=== PATIENT | female | born 1955 | race African-American/Black ===

== ENCOUNTER → 2016-09-20 | Outpatient (CLI) | payer MEDICARE ==
--- NOTE | 2016-09-20 17:59 | WOMENS IMAGING REPORT ---
EXAM DESCRIPTION: 3D SCREENING MAMMO BILAT COMPLETED DATE/TIME: 09/20/2016 2:34 pm REASON FOR STUDY: ROUTINE BILATERAL SCREENING;Z12.31 Z12.31 ENCNTR SCREEN MAMMOGRAM FOR MALIGNANT N EOPLASM OF TRISHA COMPARISON: 06/26/2014 TECHNIQUE: Standard craniocaudal and mediolateral oblique views of each breast recorded using digita l acquisition and breast tomosynthesis. LIMITATIONS: None. FINDINGS: Findings present which are benign by mammographic criteria. No suspicious masses, calcifi cations or architectural distortion. Pertinent benign findings: Stable intramammary lymph nodes, stable benign calcification left retroare olar region medially Read with the assistance of CAD. .[facility] - R2 Cenova Version 1.3 .[facility] - R2 Cenova Version 1.3 .[facility] - R2 Cenova Version 2.4 .[facility] [place] R2 Cenova Version 2.4 .[facility] - R2 Strategic Planning Director Version 9.2 Benign mammographic findings may include one or more of the following: Smooth masses, popcorn/rim/co arse calcifications, asymmetries, post-procedure changes, and lesions with long-standing stability. IMPRESSION: BENIGN MAMMOGRAPHIC FINDINGS. BIRADS 2 BREAST DENSITY: b. There are scattered areas of fibroglandular density. BIRAD: 2 BENIGN FINDING(S) RECOMMENDATION: RECOMMENDATION: ROUTINE SCREENING COMMENT: The patient has been notified of the results by letter per SA requirements. Additional no tification policies are in place for contacting patient with suspicious or incomplete findings. Quality ID #225: The [employer] recommends an annual screening mammogram for women aged 40 years or over. This facility utilizes a reminder system to ensure that all patients receive reminder letters, and/or direct phone calls for appointments. This includes reminders for routine scr eening mammograms, diagnostic mammograms, or other Breast Imaging Interventions when appropriate. Th is patient will be placed in the appropriate reminder system. The [employer] (ACR) has developed recommendations for screening MRI of the breast s in certain patient populations, to be used in conjunction with mammography. Breast MRI surveillanc e may be appropriate for women with more than 20% lifetime risk of developing breast cancer as deter mined by genetic testing, significant family history of the disease, or history of mantle radiation f or Hodgkins Disease. ACR Practice Guidelines 2008. DBT Technology DBT is a type of tomographic mammography. With conventional mammography, overlapping breast tissue ma y make lesions difficult to detect, even with good compression. DBT uses an x-ray tube that rotates a round the breast, taking images at different angles. These images are then combined to create thin sl ices of the breast that the radiologist can view as a 3D reconstruction. The [employer] unit can perform full-field digital mammograms (2D imaging); or DBT (3D imaging); or both, in a combination mode that quickly performs both the mammogram and the tomosynthesis scan while the breast is still compressed. PQRS 6045F: Fluoroscopic imaging is not utilized for breast tomosynthesis. TECHNICAL DOCUMENTATION: FINDING NUMBER: (1) ASSESSMENT: (1) JOB ID: [id number] [employer] All Rights Reserved
== END ==
LOC: WI 15:14
PROVIDERS: ATTEND Internal Medicine Geriatric Medicine
DX: Z12.31 Encounter for screening mammogram for malignant neoplasm of breast (principal)
CPT/HCPCS: 77063; G0202; 77067

== ENCOUNTER → 2017-12-24 | Outpatient (CLI) | payer MEDICAID, MEDICARE ==
--- NOTE | 2017-12-26 17:48 | WOMENS IMAGING REPORT ---
EXAM DESCRIPTION: 3D SCREENING MAMMO BILAT COMPLETED DATE/TIME: 12/24/2017 11:38 am REASON FOR STUDY: SCREENING MAMMO Z12.31 ENCNTR SCREEN MAMMOGRAM FOR MALIGNANT NEOPLASM OF TRISHA COMPARISON: 2014, 2016 TECHNIQUE: Standard craniocaudal and mediolateral oblique views of each breast recorded using digita l acquisition and breast tomosynthesis. LIMITATIONS: None. FINDINGS: No masses, calcifications or architectural distortion. No areas of suspicion. Read with the assistance of CAD. .[facility] - R2 Cenova Version 1.3 .[facility] Imaging - R2 Cenova Version 1.3 .[facility] - R2 Cenova Version 2.4 .[facility] [place] - R2 Cenova Version 2.4 .[facility] - R2 [employer] Version 9.2 IMPRESSION: NORMAL MAMMOGRAM. BIRADS 1. BREAST DENSITY: b. There are scattered areas of fibroglandular density. BIRAD: 1 NEGATIVE RECOMMENDATION: ROUTINE SCREENING COMMENT: The patient has been notified of the results by letter per SA requirements. Additional no tification policies are in place for contacting patient with suspicious or incomplete findings. Quality ID #225: The [employer] recommends an annual screening mammogram for women aged 40 years or over. This facility utilizes a reminder system to ensure that all patients receive reminder letters, and/or direct phone calls for appointments. This includes reminders for routine scr eening mammograms, diagnostic mammograms, or other Breast Imaging Interventions when appropriate. Th is patient will be placed in the appropriate reminder system. The [employer] (ACR) has developed recommendations for screening MRI of the breast s in certain patient populations, to be used in conjunction with mammography. Breast MRI surveillanc e may be appropriate for women with more than 20% lifetime risk of developing breast cancer as deter mined by genetic testing, significant family history of the disease, or history of mantle radiation f or Hodgkins Disease. ACR Practice Guidelines 2008. DBT Technology DBT is a type of tomographic mammography. With conventional mammography, overlapping breast tissue ma y make lesions difficult to detect, even with good compression. DBT uses an x-ray tube that rotates a round the breast, taking images at different angles. These images are then combined to create thin sl ices of the breast that the radiologist can view as a 3D reconstruction. The [employer] unit can perform full-field digital mammograms (2D imaging); or DBT (3D imaging); or both, in a combination mode that quickly performs both the mammogram and the tomosynthesis scan while the breast is still compressed. PQRS 6045F: Fluoroscopic imaging is not utilized for breast tomosynthesis. TECHNICAL DOCUMENTATION: FINDING NUMBER: (1) ASSESSMENT: (1) JOB ID: [id number] [employer]- All Rights Reserved Reading location - IP/workstation name: [facility]
== END ==
LOC: WI 11:13
PROVIDERS: ATTEND Internal Medicine Geriatric Medicine
DX: Z12.31 Encounter for screening mammogram for malignant neoplasm of breast (principal)
CPT/HCPCS: 77063; 77067

== ENCOUNTER 2018-03-07 22:23 | Emergency (ER) | payer MEDICARE, MEDICAID ==
[2018-03-07 23:29] LABS: APPEARANCE,URINE SLIGHTLY-CLOUDY; BILIRUBIN,URINE SMALL (NEGATIVE); COLOR,URINE AMBER; GLUCOSE, URINE NEGATIVE (NEGATIVE); KETONES,URINE 20 mg/dL (NEGATIVE); LEUKOCYTE ESTERASE,URINE LARGE (NEGATIVE); NITRITE,URINE NEGATIVE (NEGATIVE); PROTEIN,URINE 30 mg/dL (NEGATIVE); URINE SPECIFIC GRAVITY 1.033
[2018-03-07 23:38] LABS: URINE AMPHETAMINES SCREEN NEGATIVE; URINE BARBITURATES SCREEN NEGATIVE; URINE BENZODIAZEPINES SCREEN NEGATIVE; URINE COCAINE SCREEN NEGATIVE; URINE MARIJUANA (THC) SCREEN NEGATIVE; URINE PHENCYCLIDINE SCREEN NEGATIVE
[2018-03-07 23:52] LABS: URINE METHADONE SCREEN NEGATIVE
--- NOTE | 2018-03-08 00:19 | ER Document Report ---
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 The patient does give somewhat vague history but does report that she was kicked out of the house where she was living with a friend or associate. She states that she contacts to Try to get a ride to a friend's house. She states from that point she is uncertain of why EMS was contacted but when they arrived they told her that she should come to the emergency department. She currently denies any symptoms of any kind. States that she feels at her baseline and would ideally like to go home but does not currently have anywhere to go. She denies any medical symptoms of any kind. TRAVEL OUTSIDE OF THE [place] IN LAST 30 DAYS: No - HPI Onset: Just prior to arrival Onset/Duration: Sudden Quality of pain: No pain Severity: None Pain Level: Denies Associated symptoms: None Exacerbated by: Denies Relieved by: Denies Similar symptoms previously: No Recently seen / treated by doctor: No - Related Data Allergies/Adverse Reactions: Penicillins Allergy (Severe, Verified 03/07/18 23:04) Anaphylaxis Past Medical History - General Information source: Patient, Emergency Med Personnel - Social History Smoking Status: Never Smoker Frequency of alcohol use: None Drug Abuse: None Lives with: Homeless Family History: Reviewed & Not Pertinent Review of Systems - Review of Systems Notes: Constitutional: Negative for fever. HENT: Negative for sore throat. Eyes: Negative for visual changes. Cardiovascular: Negative for chest pain. Respiratory: Negative for shortness of breath. Gastrointestinal: Negative for abdominal pain, vomiting or diarrhea. Genitourinary: Negative for dysuria. Musculoskeletal: Negative for back pain. Skin: Negative for rash. Neurological: Negative for headaches, weakness or numbness. 10 point ROS negative except as marked above and in HPI. Physical Exam - Vital signs Vitals: Temp Pulse Resp BP Pulse Ox 97.8 F 85 17 133/95 H 98 03/07/18 22:32 03/07/18 22:32 03/07/18 22:32 03/07/18 22:32 03/07/18 22:32 Interpretation: Normal Notes: PHYSICAL EXAMINATION: GENERAL: Well-appearing, well-nourished and in no acute distress. HEAD: Atraumatic, normocephalic. EYES: Pupils equal round and reactive to light, extraocular movements intact, sclera anicteric, conjunctiva are normal. ENT: nares patent, oropharynx clear without exudates. Moist mucous membranes. NECK: Normal range of motion, supple without lymphadenopathy LUNGS: Breath sounds clear to auscultation bilaterally and equal. No wheezes rales or rhonchi. HEART: Regular rate and rhythm without murmurs ABDOMEN: Soft, nontender, normoactive bowel sounds. No guarding, no rebound. No masses appreciated. EXTREMITIES: Normal range of motion, no pitting or edema. No cyanosis. NEUROLOGICAL: No focal neurological deficits. Moves all extremities spontaneously and on command. PSYCH: Somewhat unusual affect, seems somewhat hesitant to engage with me but provides reasonable history and is polite on contact SKIN: Warm, Dry, normal turgor, no rashes or lesions noted. 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 On exam the patient is clearly suspicious of me, somewhat paranoid but does not appear to be responding to internal stimuli. She has a coherent thought process, has capacity on examination. She does not meet involuntary commitment criteria. She is not expressing any violent ideation either towards her self or others. She is calm and cooperative with me. She has not demonstrated any threatening behaviors here in the emergency department although has wandered outside of her room which is not a threatening behavior and of itself. The patient does not need immediate psychiatric screening or clearance I think the major situation is that she does not currently have anywhere to stay and is almost 1:00 in the morning. She has elected to remain in the emergency department on a voluntary basis and social work will be consulted in the morning to assist with getting placement into a safe setting. - Vital Signs Vital signs: Temp Pulse Resp BP Pulse Ox 97.8 F 85 17 133/95 H 98 03/07/18 22:32 03/07/18 22:32 03/07/18 22:32 03/07/18 22:32 03/07/18 22:32 - Laboratory Laboratory results interpreted by me: 03/07/18 22:51 Urine Protein 30 H Urine Ketones 20 H Urine Bilirubin SMALL H Urine Urobilinogen 4.0 H Ur Leukocyte Esterase LARGE H Discharge - Discharge Clinical Impression: Homelessness, Paranoia Condition: Fair Referrals: JASON MILES MD [Primary Care Provider] - Follow up as needed
[2018-03-08] MEDS ORDERED: VENLAFAXINE HCL 37.5 MG CAP.SR.24H PO SCH (12:30)
[2018-03-08 15:32] VITALS: BP 134/72
[2018-03-08] MEDS ORDERED: (PENDING PHARMACY ID) (Metformin Hcl [Metformin Hcl Er] 1,000 MG) PO SCH (18:00)
[2018-03-08] MEDS ORDERED: (PENDING PHARMACY ID) (Aripiprazole [Aripiprazole] 10 MG) PO SCH (18:00)
--- NOTE | 2018-03-08 18:27 | ER Document Report ---
Doctor's Note Notes: 03/08/18 18:26 As the rounding physician this AM, I assessed the patient's labs, vitals, and records. No concerning findings this morning. Patient denies any acute complaints. Patient is cleared for disposition by psychiatry. Patient awaiting social work consult. Social work has seen the patient and talk to the patient's roommate. Patient is able to go back to her residence. PHYSICAL EXAMINATION: GENERAL: Well-appearing, well-nourished and in no acute distress. HEAD: Atraumatic, normocephalic. EYES: Pupils equal round extraocular movements intact, conjunctiva are normal. ENT: Nares patent NECK: Normal range of motion LUNGS: No respiratory distress Musculoskeletal: Normal range of motion NEUROLOGICAL: Normal speech, normal gait. PSYCH: Normal mood, normal affect. SKIN: Warm, Dry, normal turgor, no rashes or lesions noted.
[2018-03-08] MEDS ORDERED: ARIPIPRAZOLE 5 MG TABLET PO SCH (22:00)
[2018-03-08] MEDS ORDERED: ATORVASTATIN CALCIUM 10 MG TABLET PO SCH (22:00)
== END 2018-03-08 15:32 | disposition home or self-care (01) ==
LOC: ER 22:23
DX: R41.82 Altered mental status, unspecified (principal); F22 Delusional disorders; Z59.0 Homelessness; E11.9 Type 2 diabetes mellitus without complications; I10 Essential (primary) hypertension; Z88.0 Allergy status to penicillin
CPT/HCPCS: 80307; 81001; 99285

== ENCOUNTER 2018-04-23 17:49 | Emergency (ER) | payer MEDICARE, MEDICAID ==
[2018-04-23 18:09] VITALS: BP 150/74
--- NOTE | 2018-04-23 19:39 | ER Document Report ---
ED Medical Screen (RME) - General Chief Complaint: Diarrhea Stated Complaint: DIARRHEA Time Seen by Provider: 04/23/18 19:30 Primary Care Provider: JASON MILES MD [Primary Care Provider] - Follow up as needed Notes: 62-year-old female patient to the emergency department for evaluation of "I am not right". Patient states that she "is got some foul odor down there ". States that "I am short of breath". Patient is acting confused. When asked if she is a mental health patient she says yes. Denies any headache. Denies any trauma. I have greeted and performed a rapid initial assessment of this patient. A comprehensive ED assessment and evaluation of the patient, analysis of test results and completion of the medical decision making process will be conducted by additional ED providers. TRAVEL OUTSIDE OF THE [place] IN LAST 30 DAYS: No - Related Data Allergies/Adverse Reactions: Penicillins Allergy (Severe, Verified 03/07/18 23:04) Anaphylaxis Past Medical History - Past Medical History Cardiac Medical History: Reports: Hx Hypertension Endocrine Medical History: Reports: Hx Diabetes Mellitus Type 2 Renal/ Medical History: Denies: Hx Peritoneal Dialysis Psychiatric Medical History: Reports: Hx Bipolar Disorder Physical Exam - Vital signs Vitals: Temp Pulse Resp BP Pulse Ox 98.4 F 77 16 150/74 H 100 04/23/18 18:07 04/23/18 18:07 04/23/18 18:07 04/23/18 18:07 04/23/18 18:07 Course - Vital Signs Vital signs: Temp Pulse Resp BP Pulse Ox 98.4 F 77 16 150/74 H 100 04/23/18 18:07 04/23/18 18:07 04/23/18 18:07 04/23/18 18:07 04/23/18 18:07 - Laboratory Result Diagrams: 04/23/18 19:47 04/23/18 19:47 Laboratory results interpreted by me: 04/23/18 19:47 RDW 14.5 H Doctor's Discharge - Discharge Referrals: JASON MILES MD [Primary Care Provider] - Follow up as needed
[2018-04-23 20:04] LABS: ABSOLUTE BASOPHILS # (AUTO) 0.1 10^3/uL (0.0-0.2); ABSOLUTE LYMPHOCYTES (AUTO) 3.6 10^3/uL (0.5-4.7); ABSOLUTE MONOCYTES (AUTO) 0.8 10^3/uL (0.1-1.4); ABSOLUTE NEUT (AUTO) 5.2 10^3/uL (1.7-8.2); BASOPHILS % (AUTO) 1.1 % (0-2); EOSINOPHILS % (AUTO) 0.3 % (0-6); HEMATOCRIT 42.9 % (36.0-47.0); HEMOGLOBIN 14.2 g/dL (12.0-15.5); MEAN CORPUSCULAR HEMOGLOBIN 27.3 pg (27.0-33.4); MEAN CORPUSCULAR VOLUME 83 fl (80-97); MONOCYTES % (AUTO) 8.4 % (3-13); PLATELET COUNT 256 10^3/uL (150-450); RED CELL DISTRIBUTION WIDTH 14.5 % (11.5-14.0); SEGMENTED NEUTROPHILS % (AUTO) 53.2 % (42-78); TOTAL CELLS COUNTED % (AUTO) 100 %; WHITE BLOOD COUNT 9.8 10^3/uL (4.0-10.5)
[2018-04-23 20:13] LABS: ALANINE AMINOTRANSFERASE 22 U/L (9-52); ALBUMIN 4.5 g/dL (3.5-5.0); ALKALINE PHOSPHATASE 107 U/L (38-126); ANION GAP 11 (5-19); ASPARTATE AMINO TRANSFERASE 45 U/L (14-36); BILIRUBIN,DIRECT 0.2 mg/dL (0.0-0.4); BILIRUBIN,TOTAL 0.9 mg/dL (0.2-1.3); BLOOD UREA NITROGEN 29 mg/dL (7-20); CALCIUM 9.8 mg/dL (8.4-10.2); CARBON DIOXIDE 27 mmol/L (22-30); CHLORIDE 106 mmol/L (98-107); GLUCOSE 88 mg/dL (75-110); POTASSIUM 3.3 mmol/L (3.6-5.0); SODIUM 144.4 mmol/L (137-145); TOTAL PROTEIN 7.1 g/dL (6.3-8.2)
--- NOTE | 2018-04-23 20:42 | RADIOLOGY REPORT (SQ) ---
EXAM DESCRIPTION: XR CHEST 2 VIEWS COMPLETED DATE/TME: 04/23/2018 20:11 CLINICAL HISTORY: 62 years, Female, sob COMPARISON: None. NUMBER OF VIEWS: 2 TECHNIQUE: Frontal and lateral views of the chest LIMITATIONS: None. FINDINGS: Heart size at the upper limits of normal. Atheromatous change thoracic aorta. Minor scarring left lung base. Lungs are otherwise clear. No pneumothorax IMPRESSION: No acute cardiopulmonary process copyright 2010 [employer]- All Rights Reserved
[2018-04-23] MEDS ORDERED: POTASSIUM CHLORIDE 10 MEQ CAPSULE.ER PO ONE (21:46)
--- NOTE | 2018-04-23 23:30 | ER Document Report ---
ED GI/ - General Chief Complaint: Diarrhea Stated Complaint: DIARRHEA Time Seen by Provider: 04/23/18 23:30 Primary Care Provider: JASON MILES MD [Primary Care Provider] - Follow up as needed Mode of Arrival: Ambulatory Information source: Patient Notes: HISTORY OF PRESENT ILLNESS: Patient is a 62-year-old female with a past medical history of bipolar disorder who presents with diarrhea. Location: Lower GI Onset: Sudden Provocation: Unknown Quality: "Watery diarrhea" Radiation: None Severity: Mild Timing: Intermittent Associated symptoms: Denies fevers or chills, no abdominal pain, no chest pain, no recent antibiotics REVIEW OF SYSTEMS: CONSTITUTIONAL : Denies fever or chills, no sweats. Denies recent illness. EENT: Denies eye, ear, throat, or mouth pain or symptoms. Denies nasal or sinus congestion. CARDIOVASCULAR: Denies chest pain. RESPIRATORY: Denies cough, cold, or chest congestion. Denies shortness of breath, difficulty breathing, or wheezing. GASTROINTESTINAL: Denies abdominal pain. Positive for diarrhea but denies nausea or vomiting. Denies constipation. GENITOURINARY: Denies difficulty urinating, painful urination, burning, frequency, or blood in urine. Denies vaginal bleeding, abnormal or irregular periods. MUSCULOSKELETAL: Denies neck or back pain or joint pain or swelling. SKIN: Denies rash or skin lesions. HEMATOLOGIC : Denies easy bruising or bleeding. LYMPHATIC: Denies swollen, enlarged glands. NEUROLOGICAL: Denies altered mental status or loss of consciousness. Denies headache. Denies weakness or paralysis or loss of use of either side. Denies problems with gait or speech. Denies sensory or motor loss. PSYCHIATRIC: Denies anxiety or stress or depression. All other systems reviewed and negative. PHYSICAL EXAMINATION: GENERAL: Well-appearing, well-nourished and in no acute distress. HEAD: Atraumatic, normocephalic. No scalp deformity, depression, or crepitance. EYES: Pupils are 3 mm and equal/round/reactive to light, extraocular movements intact, sclera anicteric, conjunctiva are normal. ENT: Nares patent bilaterally, oropharynx clear without exudates or palatal petechia. Moist mucous membranes. No tonsil hypertrophy. NECK: Normal range of motion, supple without lymphadenopathy. LUNGS: Breath sounds present, equal, and clear to auscultation bilaterally. No wheezes, rales, or rhonchi. HEART: Regular rate and rhythm without murmurs, rubs, or gallops. 2+ peripheral pulses. Normal capillary refill. ABDOMEN: Soft, nontender, nondistended. Normoactive bowel sounds. No guarding, no rebound. No masses appreciated. BACK: Normal contour, no midline tenderness. Rectal exam deferred. EXTREMITIES: Normal range of motion, no pitting or edema. No cyanosis. NEUROLOGICAL: No focal neurological deficits. Moves all extremities spontaneously and on command. PSYCH: Normal mood, normal affect. No suicidal thoughts/ideations. No homocidal thoughts/ideations. No hallucinations. SKIN: Warm, dry, normal turgor, no rashes or lesions noted. ASSESSMENT AND PLAN: This patient is a 62-year-old female who presents with watery and nonbloody diarrhea that is likely secondary to enteritis versus colitis versus viral syndrome. 1. Will obtain labs, urinalysis, and reassess. 2. Will anticipate discharge home if workup is negative. TRAVEL OUTSIDE OF THE [place] IN LAST 30 DAYS: No - Related Data Allergies/Adverse Reactions: Penicillins Allergy (Severe, Verified 03/07/18 23:04) Anaphylaxis Past Medical History - General Information source: Patient - Social History Smoking Status: Unknown if Ever Smoked Chew tobacco use (# tins/day): No Frequency of alcohol use: None Drug Abuse: None Lives with: Alone Family History: Reviewed & Not Pertinent Patient has suicidal ideation: No Patient has homicidal ideation: No - Past Medical History Cardiac Medical History: Reports: Hx Hypertension Pulmonary Medical History: Reports: None EENT Medical History: Reports: None Neurological Medical History: Reports: None Endocrine Medical History: Reports: Hx Diabetes Mellitus Type 2 Renal/ Medical History: Reports: None. Denies: Hx Peritoneal Dialysis Malignancy Medical History: Reports: None GI Medical History: Reports: None Musculoskeletal Medical History: Reports None Skin Medical History: Reports None Psychiatric Medical History: Reports: Hx Bipolar Disorder Traumatic Medical History: Reports: None Infectious Medical History: Reports: None Surgical Hx: Negative Past Surgical History: Reports: None - Immunizations Immunizations up to date: Yes Hx Diphtheria, Pertussis, Tetanus Vaccination: Yes Physical Exam - Vital signs Vitals: Temp Pulse Resp BP Pulse Ox 98.4 F 77 16 150/74 H 100 04/23/18 18:07 04/23/18 18:07 04/23/18 18:07 04/23/18 18:07 04/23/18 18:07 Course - Vital Signs Vital signs: Temp Pulse Resp BP Pulse Ox 98.4 F 77 16 150/74 H 100 04/23/18 18:07 04/23/18 18:07 04/23/18 18:07 04/23/18 18:07 04/23/18 18:07 - Laboratory Result Diagrams: 04/23/18 19:47 04/23/18 19:47 Laboratory results interpreted by me: 04/23/18 04/23/18 19:47 19:47 RDW 14.5 H Potassium 3.3 L BUN 29 H Est GFR (Non-Af Amer) 57 L AST 45 H Discharge - Discharge Clinical Impression: Viral gastroenteritis, Hypokalemia Condition: Good Disposition: HOME, SELF-CARE Instructions: Gastroenteritis (adult) ([facility]) Additional Instructions: You have been evaluated in the Emergency Department for diarrhea and a low potassium. Please follow-up with your [primary physician] as instructed in 1-2 weeks to be rechecked. Return to the Emergency Department if you experience uncontrollable diarrhea, uncontrolled nausea, chest pain, shortness of breath, weakness, or any other concerning symptoms. Prescriptions: Loperamide HCl [Imodium A-D] 2 mg PO Q6H PRN #30 tablet PRN Reason: Diarrhea Referrals: JASON MILES MD [Primary Care Provider] - Follow up as needed Print Language: Spanish
== END 2018-04-24 02:15 | disposition home or self-care (01) ==
LOC: ER 17:49
DX: K52.9 Noninfective gastroenteritis and colitis, unspecified (principal); E87.6 Hypokalemia; I10 Essential (primary) hypertension; E11.9 Type 2 diabetes mellitus without complications; Z87.892 Personal history of anaphylaxis; Z88.0 Allergy status to penicillin
CPT/HCPCS: 99283; 36415; 85025; 80053; 71046; A9270

== ENCOUNTER 2018-07-24 11:45 | Emergency (ER) | payer MEDICARE, MEDICAID ==
--- NOTE | 2018-07-24 12:23 | ER Document Report ---
ED Medical Screen (RME) - General Chief Complaint: Psych Problem Stated Complaint: CONFUSION Time Seen by Provider: 07/24/18 12:11 Primary Care Provider: JASON MILES MD [Primary Care Provider] - Follow up as needed Information source: Patient Notes: Patient presents emergency department brought in by NEGRITA for confusion. 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 NEGRITA found her wandering and brought her back. Patient is answering some questions appropriately is very pleasant but seems to confused as to her she lives and her life. I have greeted and performed a rapid initial assessment of this patient. A comprehensive ED assessment and evaluation of the patient, analysis of test results and completion of the medical decision making process will be conducted by additional ED providers. Dictation of this chart was performed using voice recognition software; therefore, there may be some unintended grammatical errors. TRAVEL OUTSIDE OF THE [place] IN LAST 30 DAYS: No - Related Data Allergies/Adverse Reactions: Penicillins Allergy (Severe, Verified 07/24/18 11:47) Anaphylaxis Past Medical History - Social History Frequency of alcohol use: None - Past Medical History Cardiac Medical History: Reports: Hx Hypertension Endocrine Medical History: Reports: Hx Diabetes Mellitus Type 2 Renal/ Medical History: Denies: Hx Peritoneal Dialysis Psychiatric Medical History: Reports: Hx Bipolar Disorder - Immunizations Immunizations up to date: Yes Hx Diphtheria, Pertussis, Tetanus Vaccination: Yes Physical Exam - Vital signs Vitals: Temp Pulse Resp BP Pulse Ox 98.2 F 77 20 124/84 100 07/24/18 11:51 07/24/18 11:51 07/24/18 11:51 07/24/18 11:51 07/24/18 11:51 Course - Vital Signs Vital signs: Temp Pulse Resp BP Pulse Ox 98.2 F 77 20 124/84 100 07/24/18 11:51 07/24/18 11:51 07/24/18 11:51 07/24/18 11:51 07/24/18 11:51 Doctor's Discharge - Discharge Referrals: JASON MILES MD [Primary Care Provider] - Follow up as needed
[2018-07-24 12:51] LABS: ABSOLUTE BASOPHILS # (AUTO) 0.1 10^3/uL (0.0-0.2); ABSOLUTE LYMPHOCYTES (AUTO) 2.2 10^3/uL (0.5-4.7); ABSOLUTE MONOCYTES (AUTO) 0.8 10^3/uL (0.1-1.4); ABSOLUTE NEUT (AUTO) 6.2 10^3/uL (1.7-8.2); BASOPHILS % (AUTO) 0.6 % (0-2); EOSINOPHILS % (AUTO) 0.2 % (0-6); HEMATOCRIT 39.5 % (36.0-47.0); HEMOGLOBIN 12.9 g/dL (12.0-15.5); MEAN CORPUSCULAR HEMOGLOBIN 27.4 pg (27.0-33.4); MEAN CORPUSCULAR HGB CONC 32.6 g/dL (32.0-36.0); MEAN CORPUSCULAR VOLUME 84 fl (80-97); MONOCYTES % (AUTO) 8.2 % (3-13); PLATELET COUNT 226 10^3/uL (150-450); RED CELL DISTRIBUTION WIDTH 14.5 % (11.5-14.0); TOTAL CELLS COUNTED % (AUTO) 100 %; WHITE BLOOD COUNT 9.3 10^3/uL (4.0-10.5)
[2018-07-24 13:13] LABS: ALANINE AMINOTRANSFERASE 32 U/L (9-52); ALBUMIN 3.9 g/dL (3.5-5.0); ALKALINE PHOSPHATASE 88 U/L (38-126); ANION GAP 10 (5-19); ASPARTATE AMINO TRANSFERASE 44 U/L (14-36); BILIRUBIN,DIRECT 0.3 mg/dL (0.0-0.4); BILIRUBIN,TOTAL 1.3 mg/dL (0.2-1.3); BLOOD UREA NITROGEN 29 mg/dL (7-20); CALCIUM 9.9 mg/dL (8.4-10.2); CARBON DIOXIDE 27 mmol/L (22-30); CHLORIDE 111 mmol/L (98-107); GLUCOSE 75 mg/dL (75-110); POTASSIUM 3.6 mmol/L (3.6-5.0); SODIUM 148.2 mmol/L (137-145); TOTAL PROTEIN 6.3 g/dL (6.3-8.2)
[2018-07-24 13:14] LABS: ACETAMINOPHEN < 10 ug/mL (10-30); ALCOHOL < 10 mg/dL (NONE DETECTED); SALICYLATE < 1.0 mg/dL (2.0-20.0)
[2018-07-24 13:42] LABS: CREATINE KINASE 1025 U/L (30-135)
--- NOTE | 2018-07-24 14:13 | ER Document Report ---
Entered by POOL LAGUNAS SCRIBE 07/24/18 1240 Acting as scribe for:AKASH TANG MD ED Psych Disorder / Suicide - General TRAVEL OUTSIDE OF THE [place] IN LAST 30 DAYS: No <AKASH TANG - Last Filed: 07/24/18 15:26> <RAO ZUNIGA - Last Filed: 07/24/18 16:44> <DIVINE BUSCH - Last Filed: 07/24/18 17:12> - General Chief Complaint: Psych Problem Stated Complaint: CONFUSION Time Seen by Provider: 07/24/18 12:11 Primary Care Provider: Nicole Robertson [Outside] - Follow up in 3-5 days [facility] [Outside] - Follow up as needed JASON MILES MD [ACTIVE STAFF] - Follow up as needed Notes: 63 year old female that presents to the emergency department today with complaints of "confusion". According to the RME note, the patient was brought in by law enforcement for this confusion as she was found wandering around prior to arrival. The patient was found wandering the hospital earlier today and was sent to "either a house or the homeless half-way by securities supervisor and security". Law enforcement found her wandering today and brought her back. (POOL LAGUNAS) 63 year old female that presents to the emergency department today with complaints of "confusion". According to the RME note, the patient was brought in by law enforcement for this confusion as she was found wandering around prior to arrival. The patient was found wandering the hospital earlier today and was sent to "either a house or the homeless half-way by securities supervisor and security". Law enforcement found her wandering today and brought her back. (AKASH TANG) - Related Data Allergies/Adverse Reactions: Penicillins Allergy (Severe, Verified 07/24/18 11:47) Anaphylaxis Past Medical History - General Information source: Patient - Social History Smoking Status: Former Smoker Frequency of alcohol use: None Drug Abuse: None Lives with: Family Family History: Reviewed & Not Pertinent Patient has suicidal ideation: No Patient has homicidal ideation: No - Past Medical History Cardiac Medical History: Reports: Hx Hypertension Endocrine Medical History: Reports: Hx Diabetes Mellitus Type 2 Psychiatric Medical History: Reports: Hx Bipolar Disorder - Immunizations Immunizations up to date: Yes Hx Diphtheria, Pertussis, Tetanus Vaccination: Yes <AKASH TANG - Last Filed: 07/24/18 15:26> Review of Systems - Review of Systems Constitutional: No symptoms reported EENT: No symptoms reported Cardiovascular: No symptoms reported Respiratory: No symptoms reported Gastrointestinal: No symptoms reported Genitourinary: No symptoms reported Female Genitourinary: No symptoms reported Musculoskeletal: No symptoms reported Skin: No symptoms reported Hematologic/Lymphatic: No symptoms reported Neurological/Psychological: See HPI, Confusion -: Yes All other systems reviewed and negative <AKASH TANG - Last Filed: 07/24/18 15:26> Physical Exam <AKASH TANG - Last Filed: 07/24/18 15:26> - Vital signs Vitals: Temp Pulse Resp BP Pulse Ox 98.2 F 77 20 124/84 100 07/24/18 11:51 07/24/18 11:51 07/24/18 11:51 07/24/18 11:51 07/24/18 11:51 - Notes Notes: Physical Exam: General: Alert, HEENT: Normocephalic. Atraumatic. PERRL. Extraocular movements intact. Oropharynx clear. Neck: Supple. Non-tender. Respiratory: No respiratory distress. Clear and equal breath sounds bilaterally. Cardiovascular: Regular rate and rhythm. Abdominal: Normal Inspection. Non-tender. No distension. Normal Bowel Sounds. Back: Non-tender. No deformity or step off. Extremities: Moves all four extremities. Upper extremities: Normal inspection. Normal ROM. Lower extremities: Normal inspection. No edema. Normal ROM. Neurological: Alert, reasonably oriented. Skin: Warm. Dry. Normal color. (POOL LAGUNAS) Physical Exam: General: Alert, HEENT: Normocephalic. Atraumatic. PERRL. Extraocular movements intact. Oropharynx clear. Neck: Supple. Non-tender. Respiratory: No respiratory distress. Clear and equal breath sounds bilaterally. Cardiovascular: Regular rate and rhythm. Abdominal: Normal Inspection. Non-tender. No distension. Normal Bowel Sounds. Back: Non-tender. No deformity or step off. Extremities: Moves all four extremities. Upper extremities: Normal inspection. Normal ROM. Lower extremities: Normal inspection. No edema. Normal ROM. Neurological: Alert, reasonably oriented. Skin: Warm. Dry. Normal color. (AKASH TANG) Course - Laboratory Result Diagrams: 07/24/18 12:27 07/24/18 12:27 - EKG Interpretation by Ne EKG shows normal: Sinus rhythm, [place], Intervals, QRS Complexes, ST-T Waves Rate: Normal - 58 Rhythm: NSR Voltage: Consistant with LVH When compared to previous EKG there are: Previous EKG unavailable <AKASH TANG - Last Filed: 07/24/18 15:26> - Laboratory Result Diagrams: 07/24/18 12:27 07/24/18 12:27 <RAO ZUNIGA - Last Filed: 07/24/18 16:44> - Laboratory Result Diagrams: 07/24/18 12:27 07/24/18 12:27 <DIVINE BUSCH - Last Filed: 07/24/18 17:12> - Vital Signs Vital signs: Temp Pulse Resp BP Pulse Ox 98.2 F 77 20 124/84 100 07/24/18 11:51 07/24/18 11:51 07/24/18 11:51 07/24/18 11:51 07/24/18 11:51 - Laboratory Laboratory results interpreted by va: 07/24/18 07/24/18 07/24/18 12:27 12:27 12:27 RDW 14.5 H Sodium 148.2 H Chloride 111 H BUN 29 H AST 44 H Creatine Kinase 1025 H Urine Protein Urine Ketones Urine Blood Urine Urobilinogen Ur Leukocyte Esterase Salicylates < 1.0 L Acetaminophen < 10 L 07/24/18 13:37 RDW Sodium Chloride BUN AST Creatine Kinase Urine Protein 30 H Urine Ketones 20 H Urine Blood SMALL H Urine Urobilinogen 2.0 H Ur Leukocyte Esterase TRACE H Salicylates Acetaminophen Discharge <AKASH TANG - Last Filed: 07/24/18 15:26> <RAO ZUNIGA - Last Filed: 07/24/18 16:44> <DIVINE BUSCH - Last Filed: 07/24/18 17:12> - Discharge Clinical Impression: Noncompliance with medication regimen, Schizoaffective disorder Clinical Impression: (Ruled Out): Bipolar disorder Condition: Stable Disposition: HOME, SELF-CARE Additional Instructions: You have been evaluated by both medical and behavioral health providers while in the emergency department. You have been cleared by both acute medical and behavioral health services. It is important that you take prescribed medications for mental health disorder such as Schizoaffective (a diagnosis per your hist ory) to help maintain psychosis, mood and behavior. You have been given a one time dose of Haldol today to aid with symptom management. Bipolar Disorder (the combination of Bipolar and Schizophrenia symptoms is often referred to as Schizoaffective) Bipolar disorder is also called manic-depressive disorder. Depression alternates with brain hyperactivity called maria isabel. Each phase lasts from several days to a few weeks. We don't know exactly what causes bipolar disorder, but it 's treatable. During the "manic phase," you may feel elated and energetic. You may have racing thoughts, rapid speech, increased activity, and grandiose ideas. During this time, you may not realize how poor your judgment is. Inappropriate spending, drug abuse, excessive alcohol use, marriage problems, and irresponsible sexual behavior are common during the manic phase. During the "depressive phase," you might feel depressed, guilty, worthless, fatigued, and unable to concentrate. You might have thoughts of suicide. Good treatments are available for bipolar disorder. Marianne is a classic drug for bipolar disorder, and is still often useful. If the manic phase is very mild, an antidepressant alone can be prescribed. If the manic phase is very severe, an antipsychotic medicine (such as Haldol) may be needed. The treatment must be matched to your symptoms, so it's important to work closely with your psychiatric care provider. Contact your physician, the hospital emergency center, crisis line, or your counsellor if you are losing control or having self-destructive thoughts. Schizophrenia (the combination of Bipolar and Schizophrenia symptoms is often referred to as Schizoaffective) Schizophrenia is a chemical disorder that affects how the brain functions. The exact cause is unknown, but it tends to run in families. It is NOT caused by emotional trauma. Schizophrenia causes disordered thinking, including unusual beliefs and inability to "process" happenings around the patient. Patients with schizophrenia benefit greatly from medicine. These medicines are called antipsychotics. Never stop the medicine without the doctor's approval. Counselling may help the patient deal with his disease. Schizophrenics require a very ordered environment. Stresses and sudden changes may bring out symptoms. Drugs and alcohol abuse may become problems. Contact the counsellor or crisis line if there are thoughts of suicide or of harming others, or if you become aware of unusual thoughts or beliefs Follow up Plan: You have been administered a one time dose of Haldol 5MG to aid with psychosis, mood and behavior. You should follow up with an outpatient mental health provider for ongoing medication management services to continue with symptom management of Schizoaffective Disorder. You previously went to [facility] ([facility]). You can go back there or a provider who accepts your insurance from the outpatient mental health resource sheet you have been provided with. The [facility] mobile crisis number (first number on the outpatient resource sheet) can be utilized for linkage to other services/supports, for crisis and talk therapy. If your symptoms persist or worsent please contact your physician immediately, utilize mobile crisis or return to the emergency department. Referrals: JASON MILES MD [ACTIVE STAFF] - Follow up as needed [facility] [Outside] - Follow up as needed [facility] [Outside] - Follow up in 3-5 days Scribe Attestation: 07/24/18 14:14 I personally performed the services described in the documentation, reviewed and edited the documentation which was dictated to the scribe in my presence, and it accurately records my words and actions. (AKASH TANG) I personally performed the services described in the documentation, reviewed and edited the documentation which was dictated to the scribe in my presence, and it accurately records my words and actions.
[2018-07-24 15:10] LABS: APPEARANCE,URINE TURBID; BILIRUBIN,URINE NEGATIVE (NEGATIVE); COLOR,URINE YELLOW; GLUCOSE, URINE NEGATIVE (NEGATIVE); KETONES,URINE 20 mg/dL (NEGATIVE); LEUKOCYTE ESTERASE,URINE TRACE (NEGATIVE); NITRITE,URINE NEGATIVE (NEGATIVE); PROTEIN,URINE 30 mg/dL (NEGATIVE); URINE SPECIFIC GRAVITY 1.031
[2018-07-24 15:51] LABS: URINE AMPHETAMINES SCREEN NEGATIVE; URINE BARBITURATES SCREEN NEGATIVE; URINE BENZODIAZEPINES SCREEN NEGATIVE; URINE COCAINE SCREEN NEGATIVE; URINE MARIJUANA (THC) SCREEN NEGATIVE; URINE METHADONE SCREEN NEGATIVE; URINE PHENCYCLIDINE SCREEN NEGATIVE
[2018-07-24] MEDS ORDERED: HALOPERIDOL 5 MG TABLET PO ONE (16:15)
[2018-07-24] MEDS ORDERED: BENZTROPINE MESYLATE 1 MG TABLET PO ONE (16:15)
[2018-07-24 17:33] VITALS: BP 162/83
--- NOTE | 2018-07-24 20:07 | EKG REPORT ---
SEVERITY:- ABNORMAL ECG - SINUS RHYTHM LEFT VENTRICULAR HYPERTROPHY : Confirmed by: Nola Navarrete MD 24-Jul-2018 20:06:03
--- NOTE | 2018-07-29 08:10 | PSYCHOLOGICAL NOTE ---
Psych Note - Psych Note Date seen by psych provider: 07/24/18 Time seen by psych provider: 14:03 - [facility] Behavioral Health CM chart review at 1403. Collateral from Security at 1440. [facility] Behavioral Health CM obtained collateral from family and shared it with this clinician at 1445. Psych Note: Reason for Consult: found wandering twice today, confusion Contact Permissions: Cousin listed as EC. Aunt information provided by cousin Patient is a 63 year old female who presented to the ED today after police found her wandering and confused. Medical staff noted she had been found wandering on hospital grounds earlier and was taken via cab (voucher) to the address on her ID. She was found wandering by that location. She was slow in processing but did answer questions. She seemed unsure of things in general. She was hyper vigilant to things going on around her as evidenced by wide eyes and being distracted by the things in her environment (loud noises outside the door, staff walking by). She denied SI/HI. [facility] Circuit [facility] Magistrate provided the following collateral information: Patient was out by the gift shop area of the hospital. She stated she was homeless, was put out and said she had no ID. When she was told she was loitering and needed to leave she pulled her ID from her bra. [facility] obtained a cab voucher and she was taken to the address on her license. She stated she could not return there and doesn't stay there anymore. She informed staff she resided at [address] [place] [address] and stated that was where her purse was. She reported she was from [place] and was on bad terms with her family. She said all she wanted was to wash and clean up and sleep. She stated she takes medication for her nerve problem. Security noted while outside she was talking/having conversations with the birds. Staff looked up the address on the internet and could not find it. Then a deputy picked her up wandering by the address on her ID. [facility] Behavioral Health Grants Manager spoke to family and provided the following collateral information: (copied and pasted directly from [facility] documentation) This rfp writer spoke with Patients cousin Christina ([phone]) who reports the patient has a history of schizo-affective disorder and has stopped taking her medications a while ago. Patient was seen at [facility]. There is a family history of Dementia (patients mother and sister). Per cousin the patient was in care home in [place], then in a correction when released, but moved to [place] about 6 years ago. Cousin reports the patient lived with her up until 3 years ago when she moved in with a man, Guevara ([phone]). Per cousin, Guevara's daughter Michaelle ( [phone]) assisted Guevara and the patient with getting food, transportation and other things they may need. This rfp writer attempted to contact both Guevara and Michaelle with no success. Cousin provided patient Aunt's number, Paras Cortés ([phone]) who stated she is aware the patient is here and is not taking her medication (when off medications hallucinations and delusions are present per Aunt) and confirms the patient does have a home on [address], but is unsure of the address. This rfp writer called cousin back who reports she does not know the exact address but states "[address], there is a [address] on the right hand side, just [address]; take a right at [employer] and there are four apartments, she lives in one of those apartments". [facility] Behavioral Health CM obtained patient's pharmacy ([facility] on [address]) and the most recent psychiatric medications filled (dated 03/19/17-10/31/17) were Effexor 37.5MG QD, Abilify 10MG BID and Cogentin 2MG BID. Address listed was the [address] [place] [address], [place] [address]. Doctors listed were Cecy Ball and David Almeida. Diagnosis: 295.70 (F25.0) Schizoaffective, Bipolar Type by History per family Medication recommendations made by the psychiatric medical provider, Dr. Kamille MD., includes: Add Haldol 5MG once now to address any psychosis/aid in mood stabilization Impression/Plan: Patient is cleared from acute psychiatric services. She denied SI/HI, no comments or gestures were made regarding these while in the ED and they were not presenting concerns. No observed psychosis that seemed to interfere ability to express needs and wants (had stated she wanted to wash/clean up and sleep which is dealing with basic needs). She did seem hyper vigilant to surrounding and what was going on in her environment. Family noted Schizoaffective history. She was administered a one time dose of Haldol to address Schizoaffective symptoms (psychosis/mood). Patient provided with the outpatient MH resource sheet which highlighted [facility] (previous provider) and [facility] for crisis/therapy/linkage. Also provided the [facility] Street Guide which highlighted the [facility]. Hospital approved a cab voucher from ED to [facility]. Patient also provided a sticky note with cousin, Aunt, Guevara and Guevara's daughter contact numbers, it along with the Street guide and MH resource sheet were stapled together. Consulted Dr. Esquivel regarding the management and care of patient. ED Physician in agreement with recommendations.
== END 2018-07-24 17:33 | disposition home or self-care (01) ==
LOC: ER 11:45
DX: F25.9 Schizoaffective disorder, unspecified (principal); R41.0 Disorientation, unspecified; Z91.14 Patient's other noncompliance with medication regimen; I10 Essential (primary) hypertension; E11.9 Type 2 diabetes mellitus without complications; Z87.892 Personal history of anaphylaxis; Z88.0 Allergy status to penicillin; Z87.891 Personal history of nicotine dependence
CPT/HCPCS: 93005; 99283; 36415; 80307 ×4; 82550; 85025; 80053; 81001; 93010; A9270 ×2

== ENCOUNTER 2018-07-25 03:55 | Emergency (ER) | payer MEDICARE, MEDICAID ==
--- NOTE | 2018-07-25 04:18 | ER Document Report ---
ED General - General Stated Complaint: PSYCH Time Seen by Provider: 07/25/18 04:04 Notes: Patient is a 63-year-old female with known history of schizophrenia who is brou ght in by the paramedics. Police found her walking around the street. She is walking in the road and they are concerned that she is going to run over. Patient's was seen early in the ER and given a dose of antipsychotic medication and released to follow-up with MIRIAN Villagomez. Patient says that she cannot afford her mental health medications and therefore stopped taking them. When I asked her if she is hallucinating she will not answer me. She seems very hesitant to answer most of my questions. She denies any pain. She denies any fevers. No infections. She says as well as pain medicines for diabetes as well as high blood pressure as well but does not have those either. She does not remember the names of any of her she cannot tell me where she lives or stays. She does not answer me when I asked her if she is homeless. TRAVEL OUTSIDE OF THE [place] IN LAST 30 DAYS: No - Related Data Allergies/Adverse Reactions: Penicillins Allergy (Severe, Verified 07/25/18 07:46) Anaphylaxis Past Medical History - Social History Smoking Status: Never Smoker Frequency of alcohol use: None Drug Abuse: None Family History: Reviewed & Not Pertinent - Past Medical History Cardiac Medical History: Reports: Hx Hypertension Endocrine Medical History: Reports: Hx Diabetes Mellitus Type 2 Renal/ Medical History: Denies: Hx Peritoneal Dialysis Psychiatric Medical History: Reports: Hx Bipolar Disorder - Immunizations Immunizations up to date: Yes Hx Diphtheria, Pertussis, Tetanus Vaccination: Yes Review of Systems - Review of Systems Notes: My Normal Review Basic REVIEW OF SYSTEMS: CONSTITUTIONAL : Denies fever, chills, or sweats. Denies recent illness. EENT: Denies eye, ear, throat, or mouth pain or symptoms. Denies nasal or sinus congestion. RESPIRATORY: Denies cough, cold, or chest congestion. Denies shortness of breath, difficulty breathing, or wheezing. GASTROINTESTINAL: Denies abdominal pain. Denies nausea, vomiting, or diarrhea. MUSCULOSKELETAL: Denies neck or back pain or joint pain or swelling. SKIN: Denies rash or skin lesions. NEUROLOGICAL: Denies altered mental status or loss of consciousness. Denies headache. Denies weakness or paralysis or loss of use of either side. Denies problems with gait or speech. Denies sensory or motor loss. PSYCHIATRIC: History of schizophrenia ALL OTHER SYSTEMS REVIEWED AND NEGATIVE. Physical Exam - Vital signs Vitals: Temp Pulse Resp BP Pulse Ox 97.3 F 53 L 16 142/63 H 100 07/25/18 04:02 07/25/18 04:02 07/25/18 04:02 07/25/18 04:02 07/25/18 04:02 - Notes Notes: General Appearance: Well nourished, alert, cooperative, no acute distress, no obvious discomfort. Vitals: reviewed, See vital signs table. Head: no swelling or tenderness to the head Eyes: PERRL, EOMI, Conjuctiva clear Mouth: No decreasd moisture Throat: No tonsillar inflammation, No airway obstruction, No lymphadenopathy Neck: Supple, no neck tenderness Lungs: No wheezing, No rales, No rhonci, No accessory muscle use, good air exchange bilaterally. Heart: Normal rate, Regular rythm, No murmur, no rub Extremities: strength 5/5 in all extremities, good pulses in all extremities, no swelling or tenderness in the extremities, no edema. Skin: warm, dry, appropriate color, no rash Neuro: speech clear, oriented x 3, normal affect, responds appropriately to questions. Psychiatric: Very flat affect. At times appears very paranoid. She sometimes does not want to answer my questions. She will stare at me for long periods of times before answering my questions. She denies having any hallucinations at this time. She denies suicidal thoughts. Course - Vital Signs Vital signs: Temp Pulse Resp BP Pulse Ox 97.6 F 52 L 16 169/62 H 100 07/25/18 12:14 07/25/18 12:14 07/25/18 12:14 07/25/18 12:14 07/25/18 12:14 - Laboratory Result Diagrams: 07/25/18 04:36 07/25/18 04:36 Laboratory results interpreted by me: 07/25/18 07/25/18 07/25/18 04:26 04:36 04:36 RDW 14.8 H Potassium 3.4 L Chloride 108 H BUN 27 H Glucose 74 L Total Bilirubin 1.5 H AST 78 H Urine Protein 30 H Urine Ketones 20 H Urine Bilirubin SMALL H Urine Urobilinogen 2.0 H Ur Leukocyte Esterase MODERATE H Salicylates < 1.0 L Acetaminophen < 10 L - EKG Interpretation by Me Additional EKG results interpreted by me: 07/25/18 04:40 EKG is reviewed and interpreted by me. EKG shows sinus bradycardia with rate of [address] segment elevation except for some mild concave up ST segment elevation in leads I and aVL. Nol ST segment depression. OK interval, QRS duration, QT intervals are within normal range. 07/25/18 04:47 Discharge - Discharge Clinical Impression: Noncompliance with medication regimen Condition: Stable Disposition: PSYCH HOSP/UNIT Instructions: Anxiety ([facility])
[2018-07-25 04:58] LABS: ABSOLUTE BASOPHILS # (AUTO) 0.1 10^3/uL (0.0-0.2); ABSOLUTE EOSINOPHILS # (AUTO) 0.1 10^3/uL (0.0-0.6); ABSOLUTE LYMPHOCYTES (AUTO) 2.3 10^3/uL (0.5-4.7); ABSOLUTE MONOCYTES (AUTO) 0.6 10^3/uL (0.1-1.4); ABSOLUTE NEUT (AUTO) 6.1 10^3/uL (1.7-8.2); BASOPHILS % (AUTO) 0.7 % (0-2); EOSINOPHILS % (AUTO) 0.7 % (0-6); HEMATOCRIT 40.8 % (36.0-47.0); HEMOGLOBIN 13.2 g/dL (12.0-15.5); LYMPHOCYTES % (AUTO) 25.1 % (13-45); MEAN CORPUSCULAR HEMOGLOBIN 27.1 pg (27.0-33.4); MEAN CORPUSCULAR HGB CONC 32.3 g/dL (32.0-36.0); MEAN CORPUSCULAR VOLUME 84 fl (80-97); MONOCYTES % (AUTO) 6.3 % (3-13); PLATELET COUNT 229 10^3/uL (150-450); RED BLOOD COUNT 4.86 10^6/uL (3.72-5.28); RED CELL DISTRIBUTION WIDTH 14.8 % (11.5-14.0); SEGMENTED NEUTROPHILS % (AUTO) 67.2 % (42-78); TOTAL CELLS COUNTED % (AUTO) 100 %; WHITE BLOOD COUNT 9.1 10^3/uL (4.0-10.5)
[2018-07-25 05:18] LABS: ALANINE AMINOTRANSFERASE 40 U/L (9-52); ALBUMIN 3.9 g/dL (3.5-5.0); ALKALINE PHOSPHATASE 89 U/L (38-126); ANION GAP 9 (5-19); ASPARTATE AMINO TRANSFERASE 78 U/L (14-36); BILIRUBIN,DIRECT 0.3 mg/dL (0.0-0.4); BILIRUBIN,TOTAL 1.5 mg/dL (0.2-1.3); BLOOD UREA NITROGEN 27 mg/dL (7-20); CARBON DIOXIDE 27 mmol/L (22-30); CHLORIDE 108 mmol/L (98-107); GLUCOSE 74 mg/dL (75-110); POTASSIUM 3.4 mmol/L (3.6-5.0); SODIUM 143.9 mmol/L (137-145); TOTAL PROTEIN 6.6 g/dL (6.3-8.2)
[2018-07-25 05:22] LABS: ACETAMINOPHEN < 10 ug/mL (10-30); ALCOHOL < 10 mg/dL (NONE DETECTED); SALICYLATE < 1.0 mg/dL (2.0-20.0)
[2018-07-25 06:15] LABS: AMORPHOUS SEDIMENT,URINE 1+ /HPF; APPEARANCE,URINE TURBID; BILIRUBIN,URINE SMALL (NEGATIVE); COLOR,URINE YELLOW; GLUCOSE, URINE NEGATIVE (NEGATIVE); KETONES,URINE 20 mg/dL (NEGATIVE); LEUKOCYTE ESTERASE,URINE MODERATE (NEGATIVE); NITRITE,URINE NEGATIVE (NEGATIVE); PROTEIN,URINE 30 mg/dL (NEGATIVE); URINE SPECIFIC GRAVITY 1.034
[2018-07-25 06:33] LABS: URINE AMPHETAMINES SCREEN NEGATIVE; URINE BARBITURATES SCREEN NEGATIVE; URINE BENZODIAZEPINES SCREEN NEGATIVE; URINE COCAINE SCREEN NEGATIVE; URINE MARIJUANA (THC) SCREEN NEGATIVE; URINE METHADONE SCREEN NEGATIVE; URINE PHENCYCLIDINE SCREEN NEGATIVE
--- NOTE | 2018-07-25 09:25 | PSYCHOLOGICAL NOTE ---
Psych Note - Psych Note Date seen by psych provider: 07/25/18 Time seen by psych provider: 07:00 - Observation and brief chart review at 0700. Interaction with patient to infrom of acceptance to inpatient MH at 0913. Psych Note: Reason for Consult: Found wandering (3 x in one day), confused, Hx Schizoaffective, off medication Contact Permissions: Called Aunt to inform of inpatient acceptance (patient gave verbal consent and mentioned she would like to talk with her). No answer. Left call back information. Patient is a 63 year old female who presented to the ED cloth winder hours via EMS after being found wandering and confused (3 times in 1 day). Patient was seen by this clinician last evening and administered a one time dose of Haldol 5MG. Patient had been provided with contact numbers for 4 people she knows, outpatient MH resource sheet with [facility] and [facility] highlighted, the [facility] Guide with Homeless nursing home highlighted and was provided a cab voucher from ED to Homeless nursing home. Today she stood in the doorway of her room more often than not. She was NOT verbally or physically aggressive and no behavioral issues. She seemed to need to know what was going on around her. She had wide eyes and continued slower thought processing. Given family report yesterday of Schizoaffective Hx, likely having been off medication for awhile, the one time dose of Haldol not being effective and her inability to utilize other resources she was provided yesterday suggests the need for longer stabilization. Diagnosis: 295.70 (F25.0) Schizoaffective Disorder, Bipolar Type by History per Aunt report yesterday Impression/Plan: Patient was seen by [facility] yesterday. She has been found wandering 3 times in one day, presented confused and disoriented, Aunt yesterday noted history of Schizoaffective and off medications, was administered Haldol 5MG PO once yesterday prior to discharge without effectiveness, and is hyper vigilant to surrounding/environment (looking around, wide eyed, easily distracted). Completed IVC paperwork. Patient accepted to [place] prior to evaluation (there was observation and chart review). Patient agreed for Aunt or Cousin to be notified of plan of care. She asked to talk with one of them herself. No answer when called, left call back information. Consulted with Dr. Esquivel regarding the management and care of patient. ED Physician in agreement with recommendations.
--- NOTE | 2018-07-25 09:52 | ER Document Report ---
Doctor's Note Notes: 07/25/18 09:51 Rounds: Chart reviewed and patient interviewed. Patient seems to be confused although she does know that she is at "[facility]". Says she has nowhere to go. We believe she might be homeless. She was seen here yesterday and discharged but was brought back in because she was found wandering in the [facility] eets. Patient supposedly has a history of schizophrenia. Vital signs are all normal. Labs were normal except for a urinalysis that looked troubling for UTI. A urine culture has been ordered. Patient appears to be medically stable for transfer or discharge. Jacky Carmona MD
[2018-07-25 12:15] VITALS: BP 169/62
--- NOTE | 2018-07-25 19:42 | EKG REPORT ---
SEVERITY:- ABNORMAL ECG - SINUS RHYTHM LEFT VENTRICULAR HYPERTROPHY : Confirmed by: Nola Navarrete MD 25-Jul-2018 19:41:41
== END 2018-07-25 12:25 ==
LOC: ER 03:55
DX: F25.0 Schizoaffective disorder, bipolar type (principal); I10 Essential (primary) hypertension; E11.9 Type 2 diabetes mellitus without complications; T50.906A Underdosing of unspecified drugs, medicaments and biological substances, initial encounter; Z91.14 Patient's other noncompliance with medication regimen; Z87.892 Personal history of anaphylaxis; Z88.0 Allergy status to penicillin; R00.1 Bradycardia, unspecified
CPT/HCPCS: 36415; 80053; 80307; 81001; 85025; 87086; 87088; 93005; 93010; 99285